=== PATIENT | female | born 1955 | race Caucasian/White ===

== ENCOUNTER 2016-04-05 14:37 | Emergency (ER) | payer MEDICARE ==
[~2016-04-05 14:37] MED LIST: ATIVAN1 MG PO; B COMPLEX1 TA3 PO; CITALOPRAM20 MG PO; CLONAZEPAM1 M1 PO; COGENTIN1 MG PO; COMPLETE VITAMI PO; CYMBALTA60 M1 PO; CYMBALTA60 MG PO; ENALAPRIL MALEAT5 MG PO; LEVOTHYROXINE0.05 MG PO; LISINOPRIL10 MG PO; MEDROL DOSEPAK4 MG PO; POTASSIUM GLUC595 MG PO; REMERON15 MG PO; SEROQUEL XR150 MG PO; TRILEPTAL300 MG PO; VASOTEC5 MG PO; VICODIN 5/500 505 MG PO; VICODIN ES 7501 TAB PO; VITAMIN D50000 I1 PO; XANAX0.5 MG PO
[2016-04-05] MEDS ORDERED: PROZAC40 M1 PO (14:54)
[2016-04-05] MEDS ORDERED: LIPITOR10 MG PO (14:55)
[2016-04-05 15:00] LABS: BASO # 0.1 10*3/uL (0.0-0.1); BASO % 0.4 % (0.0-1.0); EOS % 0.1 % (1.0-4.0); HEMOGLOBIN 15.5 g/dl (12.0-16.0); IG # 0.1 10*3/uL (0.0-0.1); LYMPH # 2.3 10*3/uL (1.3-4.4); LYMPH % 19.8 % (27.0-41.0); MEAN CELL VOLUME 94.4 fl (81.0-99.0); MEAN CORPUSCULAR HGB 29.9 pg (27.0-31.0); MEAN CORPUSCULAR HGB CONC 31.6 g/dl (33.0-37.0); MEAN PLATELET VOLUME 10.1 fl (9.6-12.3); MONO # 0.4 10*3/uL (0.1-1.0); MONO % 3.4 % (3.0-9.0); NEUT # 8.8 10*3/uL (2.3-7.9); NEUT % 75.9 % (47.0-73.0); PLATELET COUNT AUTOMATED 328 10*3/uL (130-400); RED BLOOD COUNT 5.19 10*6/uL (4.10-5.10); RED CELL DISTRI WIDTH 13.7 % (0-14.5); WHITE BLOOD COUNT 11.6 10*3/uL (4.8-10.8)
[2016-04-05 15:11] LABS: PROTHROMBIN TIME 10.7 SECONDS (9.0-12.4)
[2016-04-05 15:17] LABS: ALKALINE PHOSPHATASE 111 U/L (45-117); BILIRUBIN, TOTAL 0.5 mg/dl (0.2-1.0); BUN 15 mg/dl (7-24); CARBON DIOXIDE 23 mmol/L (21-32); CHLORIDE 104 mmol/L (98-107); EST GLOM FILT AFRICAN AMERICAN 57 ml/min; GLUCOSE 178 mg/dL (65-99); MAGNESIUM 1.8 mg/dL (1.5-2.1); POTASSIUM 4.4 mmol/L (3.5-5.1); SGOT/AST 77 IU/L (3-35); SGPT/ALT 92 U/L (12-78); SODIUM 140 mmol/L (136-145); TOTAL PROTEIN 8.6 gm/dL (6.4-8.2)
[2016-04-05 15:18] LABS: TROPONIN I < 0.015 ng/ml (<0.5)
[2016-04-05 15:24] LABS: BILIRUBIN NEGATIVE (NEGATIVE); BLOOD 1+ (NEGATIVE); CLARITY CLOUDY (CLEAR); COLOR YELLOW (YELLOW); GLUCOSE NEGATIVE (NEGATIVE); KETONE NEGATIVE (NEGATIVE); LEUKO ESTERASE NEGATIVE (NEGATIVE); NITRITE NEGATIVE (NEGATIVE); PH 7.5 (5.0-9.0); PROTEIN TRACE (NEGATIVE); UROBILINOGEN 0.2 E.U./dl (0.2-1.0)
[2016-04-05 15:45] LABS: URINE REFLEX COMMENT YES (NO)
[2016-04-05 16:57] LABS: LA>2 REFLEX 2 HR DRAW NOW
== END 2016-04-05 17:07 | disposition short-term general hospital (02) ==
LOC: ED 14:37
PROVIDERS: Student in an Organized Health Care Education/Training Program
DX: I63.9 Cerebral infarction, unspecified (principal); F41.9 Anxiety disorder, unspecified; F17.200 Nicotine dependence, unspecified, uncomplicated; Z79.899 Other long term (current) drug therapy

== ENCOUNTER 2016-12-10 14:59 | Inpatient (IN) | payer OTHER ==
[~2016-12-10] VITALS: Ht 152.4 cm; Wt 73.1 kg
--- NOTE | ~2016-12-10 | WRIGHTHP ---
[place], [place] PATIENT HISTORY AND PHYSICAL EXAM NAME: BEENA RATLIFF UNIT #: [id number] ROOM: 317 DOCTOR: POLLY RYAN MD BIRTHDATE: [birth year] DOS: 12/11/2016 CHIEF COMPLAINT: "Morning." HISTORY OF PRESENT ILLNESS: This is a 61-year-old white female who is a resident of [facility], presenting now with increased agitation and altered mental status. The patient has a history of the CVA with resultant aphasia and apparently has become increasingly more agitated and physically and verbally combative at the home. Attempts to redirect her, have met with her becoming more physically combative and resistive to care. Because she represented such a harm to self and others, it was felt that inpatient stabilization was warranted. PAST MEDICAL HISTORY: Remarkable for expressive aphasia, CVA. PAST MEDICAL HISTORY: The patient does not drink alcohol and she is a nonsmoker. The chart reveals a possible past history of bipolar disorder. MENTAL STATUS: The patient is at least oriented to self. It is unclear about place or time. She does say yes, no. Much of her other responses are nonsensical because of the aphasia. There was no agitation or aggression noted this morning and she was relatively pleasant with us. DIAGNOSIS: Brief psychotic disorder, rule out bipolar disorder. PLAN: I will go ahead and start her on Depakote 250 mg 3 times a day, maintain her Cymbalta 60 mg at bedtime, engage her in individual and el milieu activities with the ultimate plan to return to the least restrictive environment when psychiatrically stable. POLLY RYAN MD CM:HISPHYS:PATIENT HISTORY AND PHYSICAL EXAMINATION [phone] POLLY RYAN MD 12/11/16 1015 interface
--- NOTE | ~2016-12-10 | PR ---
[place], [place] PROGRESS NOTE NAME: [facility]EE[facility] RATLIFF [id number] UNIT #: [id number] ROOM: 317 DOCTOR: Alexa SEAY,MERARI BIRTHDATE: [birth year] DOS: 12/13/2016 SUBJECTIVE: The patient seen and spoke with the staff. Per staff, the patient is doing well. Med compliant. No behavioral problems or issues. Slept well last night. The patient was in the day area. She had the fascia, not able to talk, but looks bright and when I asked that how she is doing she nodded her head, seems like ____ that she is doing well. She denied any side effect from the medication. MENTAL STATUS EXAMINATION: The patient was pleasant, cooperative, seems not in acute distress. Denied any auditory or visual hallucination, not able to do full mental status examination because of her aphasia. ASSESSMENT: Bipolar disorder, mixed type. PLANS: 1. Continue current medication and care. 2. Continue redirection. Encourage activity and el milieu. MERARI SEAY MD CM:CINDY [phone] Alexa SEAY 12/13/165 interface
--- NOTE | ~2016-12-10 | DS ---
[place], [place] DISCHARGE SUMMARY NAME: BEENA RATLIFF UNIT #: [id number] ROOM: 316 DOCTOR: POLLY RYAN MD BIRTHDATE: [birth year] DOS: 12/17/2016 CHIEF COMPLAINT: "Morning." HISTORY OF PRESENT ILLNESS: This is a 61-year-old white female who is a resident of [facility], presenting now with increased agitation and altered mental status. The patient has a history of a CVA with resultant aphasia. She has become increasingly more agitated and physically and verbally combative at the home. Attempts to redirect her have met with her becoming increasingly more agitated. She represents a significant harm to self and others and it was felt that inpatient stabilization at this point was warranted. PAST MEDICAL HISTORY: Remarkable for the expressive aphasia and CVA. SUMMARY OF HOSPITAL COURSE: The patient was admitted to the hospital where she was maintained on her Cymbalta 60 mg at bedtime, Depakote 250 mg 3 times daily was added as a mood stabilizer to decrease her agitation and her mood lability. Additionally, she was started on Vraylar 1.5 mg at bedtime, also to act as a mood stabilizer and decrease her agitation and Exelon patch 4.6 mg a day was added to help her maintain or improve ADLs, behavior and cognition as well as hoping to improve communication skills. Ultimately, the Vraylar was increased from 1.5 to 3 mg at bedtime and the Exelon was increased from 4.6 to 9.5 mg daily. With these medication changes, the patient dramatically improved, mood did stabilize and affect improved. She voiced positive plans for the future. She still did exhibit some frustration with her communication issues, but this seemed to be much less intense than previously. She tolerated the medication regimen well, noting no side effects from the medicines themselves. She improved sufficiently to return to [place]. MENTAL STATUS AT DISCHARGE: The patient is alert and oriented with some time gaps. Mood does seem to be trending strongly toward improvement. Affect appropriate. There is no dakota or hypomania. There are no overt auditory or visual hallucinations. No delusions, no paranoia. Short term memory has gaps, otherwise she is intact. FINAL DIAGNOSIS: Major depression, recurrent with psychotic features. PLAN: The patient will return to [place] where she will have followup by the psychiatrist of her choice. ADDENDUM CHIEF COMPLAINT: The patient nodded yes and no. SUMMARY OF VISIT: The patient was interviewed in her room. She was able to nod yes or no to questions and did nod that she did not want to go to breakfast that she did not want to leave here and that she likes it here. The patient has been very compliant and pleasant here and has not been exhibiting the behaviors that were so prominent that led to her admission. She has tolerated the medication regimen well. The only reason she did not return to the long-term care facility [place], [place] DISCHARGE SUMMARY NAME: BEENA RATLIFF UNIT #: [id number] ROOM: 316 DOCTOR: POLLY RYAN MD BIRTHDATE: [birth year] yesterday was that the paperwork that was required, did not come until very, very late in the evening and it did not seem to be in her best interest to transport her back to the correction at such a late evening time. MENTAL STATUS AT DISCHARGE: She is alert and oriented to self at least place, possibly time. Mood does seem to be euthymic. Affect appropriate. There is no dakota or hypomania. There are no overt auditory or visual hallucinations, delusions or paranoia. For the most part, she does seem to be fairly euthymic. DISCHARGE DIAGNOSES AND PLAN: As per the 12/17/2016 dictation. POLLY RYAN MD CM:ISIDRO [id number] POLLY RYAN MD 12/19/16 0645 interface
--- NOTE | ~2016-12-10 | PR ---
[place], [place] PROGRESS NOTE NAME: BEENA RATLIFF UNIT #: [id number] ROOM: 317 DOCTOR: POLLY RYAN MD BIRTHDATE: [birth year] DOS: 12/12/2016 CHIEF COMPLAINT: The patient smiled and nodded. SUMMARY OF THE VISIT: The patient was interviewed in her room. She was resting in bed. The interview was difficult because of her aphasia. She was able to communicate more readily if yes and no type questions were asked of her and she was able to smile and nod yes or no. She did report that she did not sleep well and denies pain. Nurses report that she seems to isolate herself and gets easily frustrated and agitated. She does exhibit extreme mood lability from time to time. MENTAL STATUS: It is limited due to her inability to totally communicate. She did seem pleasant with me, however, and exhibited no agitation directed towards me. I was not fully able to ascertain her memory function. PLAN: I will go ahead and increase her Vraylar from 1.5 to 3 mg at nighttime, trying to decrease some of her mood lability and agitation. I will add Exelon patch 4.6 mg daily to augment the Namenda that she was already on to see if this helps improve communication skills. We will engage in individual and el milieu activity with the ultimate plan to return back to her long-term care facility when stable. POLLY RYAN MD CM:PNTRANS [id number] POLLY RYAN MD 12/13/16 0021 interface
--- NOTE | ~2016-12-10 | PR ---
[place], [place] PROGRESS NOTE NAME: BEENA RATLIFF UNIT #: [id number] ROOM: 317 DOCTOR: POLLY RYAN MD BIRTHDATE: [birth year] DOS: 12/15/2016 CHIEF COMPLAINT: "____." SUMMARY OF THE VISIT: The patient was interviewed as she was getting out of bed. She engaged in very superficial conversation, which is typical for her because of her dysphagia. She easily gets frustrated with her inability to communicate; however, she redirected and smiled as I supported her. MENTAL STATUS: She is alert and oriented with time gaps. Mood does seem to be trending towards euthymia and affect is more appropriate. There is no symptom suggestive of hypomania or dakota. Likewise, there are no overt auditory or visual hallucinations. No delusions, no paranoia are present. Short-term memory has gaps. PLAN: I will go ahead and increase her Exelon patch from 4.6 mg daily to 9.5 mg daily in an effort to improve and maintain ADLs, behavior and cognition. We will engage in individual and el milieu activity with the plan to return to the least restrictive environment when psychiatrically stable. POLLY RYAN MD CM:PNTRANS [id number] POLLY RYAN MD 12/16/16 0211 interface
--- NOTE | ~2016-12-10 | PR ---
[place], [place] PROGRESS NOTE [id number] UN[facility] #: [id number] ROOM: 317 DOCTOR: Alexa SEAY,MERARI BIRTHDATE: [birth year] DOS: 12/14/2016 PSYCHIATRIC PROGRESS NOTE SUBJECTIVE: The patient seen and spoke with the staff. Per staff, the patient is doing well, taking her medications, slept well last night. No behavioral problems or issues. The patient was in the day area. She said that she is doing good, did not express any problems or other concerns. Reports good sleep and appetite. Denied being depressed, sad, hopeless or helpless. When I asked her if she feels the medication is helping her or not, she nodded her head. She was trying to talk, but because of her aphasia, she was not able to communicate properly. MENTAL STATUS EXAMINATION: The patient was pleasant and cooperative. She was alert. She was aware where she is, which can be identified by her comfortability with the surroundings. She was able to remember me. She was not in any acute distress. She looks comfortable. Not able to do the full mental status examination because of her aphasia. ASSESSMENT: Bipolar type 1, mixed type. PLAN: 1. Continue current medication and care. 2. Continue redirection. 3. Vides milieu. 4. Final medication management and discharge plan by the regular team. MERARI SEAY MD CM:CINDY [id number] Alexa SEAY 12/14/16 1553 interface
[~2016-12-10 14:59] MED LIST changes: +LIPITOR10 MG PO; +PROZAC40 M1 PO
[2016-12-10] MEDS ORDERED: ASPIRIN CHEWABL81 MG PO (15:05)
[2016-12-10] MEDS ORDERED: COGENTIN0.5 MG PO (15:06)
[2016-12-10] MEDS ORDERED: URECHOLINE10 MG PO (15:08)
[2016-12-10] MEDS ORDERED: PLAVIX75 M1 PO (15:08)
[2016-12-10] MEDS ORDERED: BENADRYL ALLERG25 M5 PO (15:09)
[2016-12-10] MEDS ORDERED: NATURE'S BLEND F1 MG PO (15:10)
[2016-12-10] MEDS ORDERED: LANTUS SOL100 UNIT/1 SC (15:11)
[2016-12-10] MEDS ORDERED: SYNTHROID25 MCG PO (15:12)
[2016-12-10] MEDS ORDERED: CYMBALTA60 MG PO (15:13)
[2016-12-10] MEDS ORDERED: ATIVAN0.5 MG PO (15:15)
[2016-12-10] MEDS ORDERED: REMERON15 M2 PO (15:24)
[2016-12-10] MEDS ORDERED: NAMENDA-28 PO (15:25)
[2016-12-10] MEDS ORDERED: PROTONIX40 MG PO (15:25)
[2016-12-10] MEDS ORDERED: SEROQUEL25 MG PO (15:26)
[2016-12-10] MEDS ORDERED: Senokot-S 50 MG1 TAB PO (15:26)
[2016-12-10] MEDS ORDERED: FLOMAX0.4 MG PO (15:27)
[2016-12-10] MEDS ORDERED: VITAMIN B150 MG PO (15:28)
[2016-12-10] MEDS ORDERED: VITAMIN C500 M6 PO (15:29)
[2016-12-10] MEDS ORDERED: VITAMIN D22000 UNIT PO (15:30)
[2016-12-10] MEDS ORDERED: ACETAMINOPHEN325 M3 PO (15:33)
[2016-12-10] MEDS ORDERED: HALOPERIDOL5 MG/1 M1 IM ×2 (15:34→15:36)
[2016-12-10] MEDS ORDERED: ZOFRAN4 MG PO (15:37)
[2016-12-10] MEDS ORDERED: MIRALAX17 GM PO (15:38)
[2016-12-10] MEDS ORDERED: Nystatin Cream15 GM T (15:39)
--- NOTE | 2016-12-10 16:30 | NUR ---
PT ARRIVED ON THE UNIT AT 1630 VIA AMBULANCE AND SECURITY ESCORTING. PT ALERT TO PERSON ONLY.
--- NOTE | 2016-12-10 16:41 | NUR ---
NOTIFIED OF MEDICAL MANAGEMENT CONSULT NEEDED.
[2016-12-10 16:43] VITALS: BP 116/64
[2016-12-10 17:08] VITALS: BP 116/64
--- NOTE | 2016-12-10 17:18 | NUR ---
BEENA RATLIFF a 61 year old F [facility] BY [facility]A [facility]. Arrived on unit at 1630 . ALLERGIES: NKA . Vital signs are: 97.2-83-18 116/64. WE RECEIVED VERBAL CONSENT FROM THE POA FOR THE FOLLOWING FORMS stated understanding: Authorization For The Release of Medical Information, Clothing List, Consent to Voluntary Admission and Hospitalization, Consent and Release Forms/Receipt of Rights, Acknowledgement of Advance Directive Information, Behavioral Health Consent Form, and Informed Consent of Medications. Admitted under the services of Dr. CONNOR URBAN,[facility]. A search was conducted and hazardous articles were removed. Client was oriented to the unit. HELIO JIMÉNEZ
--- NOTE | 2016-12-10 18:24 | NUR ---
PT ALERT TO PERSON ONLY. PT SPEAKS USING YES OR NO PHRASES BUT HAS BEEN SHAKING HER HEAD IN THE OPPOSITE DIRECTION OF HER ANSWER. PT ANXIOUS AT TIMES, PT UNABLE TO EXPRESS WANTS OR NEEDS. NO RESPONSE TO INTERNAL STIMULI NOTED. PT DENIES ANY HOMICIDAL/SUICIDAL THOUGHTS. PT UP TO WHEELCHAIR, PT 2 ASSIST,D/T RIGHT SIDED WEAKNESS. PT CONTINENT OF BOWEL AND BLADDER, EPISODES OF INCONTINENCE NOTED, CARE PROVIDED NEEDED.
[2016-12-10 20:51] VITALS: BP 107/60
--- NOTE | 2016-12-11 04:35 | NUR ---
24 HR chart check completed.
[2016-12-11 07:49] LABS: BASO % 0.7 % (0.0-1.0); EOS # 0.2 10*3/uL (0.0-0.4); EOS % 4.4 % (1.0-4.0); HEMATOCRIT 38.6 % (37.0-47.0); HEMOGLOBIN 11.7 g/dl (12.0-16.0); LYMPH # 1.5 10*3/uL (1.3-4.4); LYMPH % 33.6 % (27.0-41.0); MEAN CELL VOLUME 85.6 fl (81.0-99.0); MEAN CORPUSCULAR HGB 25.9 pg (27.0-31.0); MEAN CORPUSCULAR HGB CONC 30.3 g/dl (33.0-37.0); MEAN PLATELET VOLUME 11.1 fl (9.6-12.3); MONO # 0.4 10*3/uL (0.1-1.0); MONO % 9.3 % (3.0-9.0); NEUT # 2.4 10*3/uL (2.3-7.9); NEUT % 51.8 % (47.0-73.0); PLATELET COUNT AUTOMATED 221 10*3/uL (130-400); RED BLOOD COUNT 4.51 10*6/uL (4.10-5.10); RED CELL DISTRI WIDTH 15.6 % (0-14.5); WHITE BLOOD COUNT 4.5 10*3/uL (4.8-10.8)
--- NOTE | 2016-12-11 07:57 | NUR ---
PT PLESANT AND COOPERATIVE, MED COMPLIANT. DIFFICULT TO ENGAGE DUE TO DYSPHAGIA FROM PREVIOUS RIGHT SIDED CVA, MED COMPLIANT WITH OUT DIFFICULTY. PT CONSUMED FINGER FOODS AND FLUIDS WELL. UNABLE TO ADMINISTER BOLUS OF GLUCERNA DUE TO INAVALIBILITY. SLEPT 8 HOURS WITH OUT DIFICULTY. CONTINUE POC
[2016-12-11 07:59] VITALS: BP 108/64
--- NOTE | 2016-12-11 08:13 | NUR ---
SPEECH PATHOLOGY Screening completed. Reports indicate that patient has a hx of CVA with receptive and expressive aphasia. Patient is experiencing no acute language difficulties and is tolerating diet with no dysphagia. Speech pathology services are not warranted at this time however this dept. will remain available should future needs arise. MAKI PINTO MSCCC-FOOD PRODUCTION SUPERVISOR
[2016-12-11 08:20] LABS: ALBUMIN 3.4 gm/dl (3.1-4.5); ALKALINE PHOSPHATASE 105 U/L (45-117); BUN 14 mg/dl (7-24); CHLORIDE 109 mmol/L (98-107); CHOLESTEROL 132 mg/dL (<200); CREATININE 0.78 mg/dL (0.55-1.02); HDL CHOLESTEROL 55 mg/dl (40-60); LDL CHOLESTEROL 53 mg/dL (9-159); POTASSIUM 3.9 mmol/L (3.5-5.1); SGOT/AST 25 IU/L (3-35); SGPT/ALT 23 U/L (12-78); SODIUM 144 mmol/L (136-145); TOTAL PROTEIN 7.3 gm/dL (6.4-8.2); TRIGLYCERIDES 120 mg/dl (<150); VLDL CHOLESTEROL 24 mg/dL (6-40)
[2016-12-11 09:24] LABS: VITAMIN D, 25-HYDROXY 22.1 ng/mL (30-100)
--- NOTE | 2016-12-11 10:43 | NUR ---
UNABLE TO ASSESS MENTAL STATUS D/T APHASIA. SMILING UPON INTERACTIONS WITH STAFF. REPEATS "YES, NO, YES, YES, NO" THIS AM WHEN ASKED ANY QUESTIONS. APPEARS TO UNDERSTAND SIMPLE COMMANDS FROM STAFF. DECLINED BREAKFAST THIS MORNING. MEDICATION COOMPLIANT WITHOUT DIFFICULTY. NO SELF HARM OR BEHAVIORS NOTED. NO AGITATION OR AGGRESSION. CALM AND COOPERATIVE WITH STAFF WITH HOC THIS MORNING. NO OVERT HALLUCINATIONS NOTED. RESPIRATIONS EASY AND EVEN. NO ACUTE DISTRESS NOTED.
--- NOTE | 2016-12-11 10:50 | NUR ---
ASKED ACTIVITY THERAPIST FOR COMMUNICATION BOAD, STATES SHE WILL LOOK FOR ONE.
--- NOTE | 2016-12-11 12:59 | NUR ---
Occupational Therapy screen this [facility]. Patient has right hemiplegia, expressive/receptive aphasia and dysphagia with g-tube for bolus feedings. Patient was LTC at a alf, Pankaj lift for xfers, dependent for self care and IN feeding after set up with left hand. At this time there is not a need for OT as patient continues to function as she did prior to admission. Recommend nursing use Pankaj lift for transfers for max safety and PROM RUE during am care. Thank you for this referral. Emily David OTR/l
--- NOTE | 2016-12-11 13:01 | NUR ---
PHYSICAL THERAPY Patient screened. parts counterman right hemiplegia. Hoyr lift at prior facility. No PT skills/needs. Pankaj bed to chair recommended to staff. Return to [facility] as prior. Thank you for this referral. Lexi Foster,PT
--- NOTE | 2016-12-11 13:35 | NUR ---
Exercise/Choices/Trivia This benefits the patient in her treatment goal of positivity, decrease agitation and anxiety Patient was not present during exercise portion of group,but came afterwards. Patient was quiet and withdrawn during group. patient also does not speak. Other patients did say hello to her. I discussed with patient what she liked to do and told her i would get her things
--- NOTE | 2016-12-11 16:49 | NUR ---
Sent upated information to the facility.
[2016-12-11 20:28] VITALS: BP 111/70
--- NOTE | 2016-12-12 04:29 | NUR ---
24 HR chart check completed.
--- NOTE | 2016-12-12 07:40 | NUR ---
PT HAS PERIODS OF AGITATION IN REGARDS TO FRUSTRATION WITH COMMUNICATION BARIERS AND DECREASED MOBILITY. MED COMPLAINT WITH OUT DIFFICULTY. SLEPT 8 HOURS WITH OUT INTURRUPTION COPPERATIVE OF CARE NO EMOTIONAL OUTBURSTS OR SELF HARM THIS SHIFT.
[2016-12-12 08:00] VITALS: BP 124/78
--- NOTE | 2016-12-12 08:11 | NUR ---
12/11/16 Afternoon [facility] Patient did not attend group. Patient was encouraged to join and i discussed with patient the benefits to attending group. But patient just refused and indicated she would like to lay down
--- NOTE | 2016-12-12 12:10 | NUR ---
Nutritional Support Services Note: Pt is eating well. Recommend diet continues as regular with finger foods. Boost Glucose Control via peg if meal consumption falls below 50% of foods offered. Will continue to follow as needed. oSnja Hernandez
--- NOTE | 2016-12-12 18:53 | NUR ---
NAPS INTERMITTENTLY T/O THE SHIFT. MEDICATION COMPLIANT WITHOUT DIFFICULTY. PLEASANT WITH STAFF. UNABLE COMMUNICATE D/T APHASIA. COMMUNICATION BOARD INEFFECTIVE AT THIS TIME.
[2016-12-12 20:05] VITALS: BP 100/65
--- NOTE | 2016-12-12 23:50 | NUR ---
PT IN DINING ROOM FEARFULL TO GO TO BED, TEARFULL AND PARINOID THAT SOMEONE IS GOING TO TRY AND KILL HER IN HER SLEEP. 1-1 PROVIDED, DEEP BREATHING EXERCISES, REASSURANCE OF SAFETY. PT REQUESTING "SOMETHING TO HELP CALM ME DOWN SO I CAN JUST SLEEP". MEDICATION OPTIONS DISCUSSED PT REQUESTING ATIVAN PO. ADMINISTERED PER ORDER.
--- NOTE | 2016-12-13 06:10 | NUR ---
PT PLESANT AND COOPERATIVE WITH ALL ASPECTS OF CARE, CONTINUES TO HAVE SOME FRUSTRATION WITH LANGUAGE BARRIER AND DECREASED MOBILITY. MED COMPLAINT WITH OUT COAXING. CONTINUE TO EXPLORE ALTERNATIVE MEANS OF COMMUNICATION WITH PT TO DECREASE FRUSTRATION . PT SLEPT 8 HOURS WITH OUT INTURRUPTION.
[2016-12-13 08:40] VITALS: BP 102/68
--- NOTE | 2016-12-13 16:02 | NUR ---
Tamiko is compliant with prescribed medications. Due to speaking difficulty unable to assess thought processes. She does answer questions asked by staff with one and two words and also motions when she needs something. No agitation has been noted. She has spent time up in the dining room for meals and does sit for periods of time with peers, watching TV and listening to music. Worried, tense expression noted @ intervals. Reassurance and support provided by staff. She has not exhibited any overt s/s of sensory disturbances. Energy level is low with napping. Appetite is good for meals. Refer to [facility] flowsheet for specific monitoring.
[2016-12-13 19:54] VITALS: BP 101/68
--- NOTE | 2016-12-13 23:42 | NUR ---
PATIENT MEDICATION COMPLAINT. ASSISTED TO BATHROOM AND BED WITH ASSIST X 2. PATIENT WITH SOME FRUSTRATION WITH LANGUAGE BARRIER BUT NURSING ABLE TO REDIRECT PATIENT. EXPRESSES NO PAIN OR DISCOMFORT AT THIS TIME
--- NOTE | 2016-12-14 02:30 | NUR ---
24 HR chart check completed.
--- NOTE | 2016-12-14 06:38 | NUR ---
Q 15 MINUTE SAFETY CHECKS MAINTAINED. SLEPT < 8 HRS THROUGHOUT SHIFT
[2016-12-14 08:25] VITALS: BP 110/68
--- NOTE | 2016-12-14 18:13 | NUR ---
Tamiko is compliant with medications. She continues to answer questions by staff with one word statements such as yes or no. Unable to determine thought process due to limited speaking ability. She is eating with a good appetite and has spent some time out in milieu with peers. She has exhibited some appropriate smiling. No overt s/s of sensory disturbances. Transports about in wheelchair. Energy level noted to be appropriate to condition. Dr. Bloom in to see her today. Refer to [facility] flowsheet for specific monitoring.
[2016-12-14 20:02] VITALS: BP 104/63
--- NOTE | 2016-12-15 02:58 | NUR ---
24 HR chart check completed.
--- NOTE | 2016-12-15 07:10 | NUR ---
Q 15 MINUTE SAFETY CHECKS MAINTAINED. SLEPT > 8 HOURS THROUGHOUT SHIFT
[2016-12-15 08:16] VITALS: BP 116/78
--- NOTE | 2016-12-15 11:02 | NUR ---
NOTIFIFED AT [phone] REGARDING PT NEEDING ALEKSANDRA AND BANDAID ORDERED FOR RIGHT HAND.
--- NOTE | 2016-12-15 11:47 | NUR ---
BEENA RATLIFF [id number] Please refer to the physician's history and physical for past medical history, comorbid conditions, and allergies. Diagnosis: BIPOLAR TYPE I MIXED Beau Score: 17,VERY HIGH RISK WOUND DESCRIPTIONS: Location of the wound: right hand Type of wound: skin tear Thickness: Partial Size: 0.5cm x 0.5cm x <0.1cm Tunneling: none Undermining: none Sinus Tract: none Presence of Exudate: Sanguineous Amount: Light Color: Red Odor: None Periwound Skin Appearance: Normal Wound edges: approximated Pain (associated with wound): none at time of assessment How does patient state this happened? pt unable to state how this happened Surface the patient is resting on: Proform SKIN PREVENTION RECOMMENDATION: 1. Pressure redistribution support surface as appropriate 2. Elevate heels 3. Remove boots/TEDS every shift and reapply 4. Head of bed 30 degrees as tolerated 5. Assess nutrition and hydration 6. Manage moisture 7. Avoid the use of containment devices while in bed 8. Use absorptive products on surfaces limit layers of linens on bed 9. Turn and reposition every 1-2 hours in bed and every 1 hour in chair as tolerated 10. Weight shifts every 15 minutes while up in chair 11. Offloading with pillows or device to keep heels elevated off bed 12. Monitor skin at least every shift 13. Inspect under medical devices twice a day WOUND TREATMENT RECOMMENDATIONS: Cleanse right hand with NSS and apply antibiotic ointment and cover with bandaid daily.
--- NOTE | 2016-12-15 13:20 | NUR ---
Exercise/Memory Ball This will help patient in her treatment goal of reduction of agresstion/agitation learn relaxing skills and coping skills Patient did attend group and participated as well as she could. Patient performed exercises and passing the ball from one another quite well. Patient did not become upset or aggitated when she was unable to do or express something she wanr=marcia to. She did express quiet frustration
--- NOTE | 2016-12-15 13:24 | NUR ---
DUNCAN received call from [facility] informing that [facility] was not back yet. DUNCAN informed that Dr. Sanders is looking for discharge on Thursday. DUNCAN educated that as long as Kanchan Cruz update was sent to [facility] within 48 hours facility can take Pt back by results are received.
--- NOTE | 2016-12-15 17:06 | NUR ---
AT 1630, STAFF ALERTED THIS NURSE THAT PT WAS LAYING ON THE FLOOR IN THE DINING AREA. THIS NURSE AND JAMAICA APPROACHED PT WAS LAYING ON THE FLOOR ON HER RIGHT SIDE WITH HER HEAD UP OFF THE GROUND. PT ASSISTED UP TO WHEELCHAIR VIA 3 ASSIST, ROM WNL, NO S/S OF PAIN NOTED OR RED AREAS NOTED. [facility] DIRECTOR, NATE NOTIFIFED AT 1636, NOTIFIED AT 1638, NURSING SERVICE STATION OPERATOR NOTIFIED AT 1640, PT GERALD HINOJOSA NOTIFIFED AT 1641.
--- NOTE | 2016-12-15 17:47 | NUR ---
NOTIFIFED OF HEAD CT RESULTS RECEIVED. PER HE WILL TAKE A LOOK AT IT. NO FURTHER ORDERS AT THIS TIME.
[2016-12-15 20:10] VITALS: BP 112/79
--- NOTE | 2016-12-15 21:38 | NUR ---
DIFFICULT TO AROUSE FOR PM MEDICATION. ONE AWAKE CLIENT MEDICATION COMPLIANT AND DRANK 140ML OF WATER. PEG TUBE PATENT AND INTACT. REPOSITIONED FOR COMFORT
--- NOTE | 2016-12-16 03:43 | NUR ---
24 HR chart check completed.
--- NOTE | 2016-12-16 07:06 | NUR ---
Q 15 MINUTE SAFETY CHECKS MAINTAINED. SLEPT >8 HOURS THROUGHOUT SHIFT
[2016-12-16 08:05] VITALS: BP 111/76
--- NOTE | 2016-12-16 08:51 | NUR ---
12/15/16 Afternoon BIN This will help with patients treatment with socialization,relaxation and reduction in stress Patient did attend group and did begin to participate but soon appeared to become frustrated and quit playing. Patient was offered 1:1 multiple times by myself and Bebe Johnson, but refused every time. Patient stayed in room,until group was over,watching the game
--- NOTE | 2016-12-16 12:58 | NUR ---
Exercise/Games Patient was in bed when i asked her to come to group. Patient does not speak but i understood her motioning with her hands to mean she would when she got dressed. Patient did not come up to lounge until we were putting away the game to watch a movie
--- NOTE | 2016-12-16 15:54 | NUR ---
Halloween Color and Talk This group will help patient to reduce stress Patient stated she wanted to join goup but then "needed" to leave the room for the bathroom. When patient returned pstient refused to participate. Patient was encouraged to join in and given coloring page and crayons but stl refused
[2016-12-16 19:50] VITALS: BP 110/56
--- NOTE | 2016-12-16 21:22 | NUR ---
24 HR chart check completed.
--- NOTE | 2016-12-17 06:10 | NUR ---
PT HAS SLEPT QUIETLY THROUGHOUT THE SHIFT PAST 2200.
[2016-12-17 07:42] VITALS: BP 109/58
[2016-12-17 07:54] LABS: BASO % 0.4 % (0.0-1.0); EOS # 0.2 10*3/uL (0.0-0.4); EOS % 3.2 % (1.0-4.0); HEMATOCRIT 40.5 % (37.0-47.0); HEMOGLOBIN 12.5 g/dl (12.0-16.0); LYMPH # 1.6 10*3/uL (1.3-4.4); LYMPH % 33.7 % (27.0-41.0); MEAN CELL VOLUME 85.3 fl (81.0-99.0); MEAN CORPUSCULAR HGB 26.3 pg (27.0-31.0); MEAN CORPUSCULAR HGB CONC 30.9 g/dl (33.0-37.0); MEAN PLATELET VOLUME 10.9 fl (9.6-12.3); MONO # 0.4 10*3/uL (0.1-1.0); MONO % 9.2 % (3.0-9.0); NEUT # 2.5 10*3/uL (2.3-7.9); NEUT % 52.6 % (47.0-73.0); PLATELET COUNT AUTOMATED 241 10*3/uL (130-400); RED BLOOD COUNT 4.75 10*6/uL (4.10-5.10); RED CELL DISTRI WIDTH 15.8 % (0-14.5); WHITE BLOOD COUNT 4.7 10*3/uL (4.8-10.8)
[2016-12-17 07:56] LABS: ALBUMIN 3.4 gm/dl (3.1-4.5); ALKALINE PHOSPHATASE 96 U/L (45-117); BUN 23 mg/dl (7-24); CHLORIDE 107 mmol/L (98-107); CREATININE 0.85 mg/dL (0.55-1.02); POTASSIUM 3.8 mmol/L (3.5-5.1); SGOT/AST 23 IU/L (3-35); SGPT/ALT 20 U/L (12-78); SODIUM 143 mmol/L (136-145); TOTAL PROTEIN 7.5 gm/dL (6.4-8.2)
[2016-12-17] MEDS ORDERED: MEMANTINE HCL10 MG PO (09:04)
[2016-12-17] MEDS ORDERED: VRAYLAR3 MG PO (09:04)
[2016-12-17] MEDS ORDERED: DIVALPROEX SOD125 M1 PO (09:04)
[2016-12-17] MEDS ORDERED: RIVASTIGMINE1 EAC1 T (09:04)
[2016-12-17] MEDS ORDERED: LORAZEPAM0.5 MG PO (09:04)
[2016-12-17] MEDS ORDERED: DULOXETINE HCL60 MG PO (09:04)
--- NOTE | 2016-12-17 09:17 | NUR ---
Treatment Team was held with the follow present: Dr. Sanders, JAMA, MEdical Student, RN, AT, and SW. Pt to be discharged to [facility] today.
--- NOTE | 2016-12-17 09:23 | NUR ---
SW set up transportation with [facility] for pickup at 12:30pm.
--- NOTE | 2016-12-17 09:25 | NUR ---
SW left VM for Son Shane [facility]
--- NOTE | 2016-12-17 09:25 | NUR ---
JARON notified [facility] that Pt was discharged and would picked up around 12:30pm. Sheldon stated that jaron said pt could not return due to singinficant change [facility] not back. JARON educated that if Update was submitted Pt can return to facility. [facility] faxed updated information to [facility].
--- NOTE | 2016-12-17 09:28 | NUR ---
SOn Shane returned call and SW informed him that Pt was being discharged back to [facility] today. Son said ok.
--- NOTE | 2016-12-17 11:04 | NUR ---
DUNCAN OLIVARES. UPDATE IS WITH TUBE REPAIRER NICK AND F-T-F WAS REQUESTED. VELIA WILL HAVE NICK CALL DUNCAN.
--- NOTE | 2016-12-17 11:10 | NUR ---
AWA FROM [facility] STATING THAT THEY CAN NOT ACCEPT PT BACK UNTIL RESULTS FROM PASRR LEVEL ARE BACK FROM [facility].
--- NOTE | 2016-12-17 11:20 | NUR ---
Trivia/ Goal setting Group Patient attended and displayed good participation once arriving in group. Nursing brought patient into group after group was started and stated patient was agitated. Patient however able to agree to goal of "being happier" by nodding head and verbalizing "yes." Patient appropriatly participated in triva questions with peers evident by laughing and smiling throughout group. Patient progressing towards short term goals.
--- NOTE | 2016-12-17 11:44 | NUR ---
SW CALLED [facility] AND PUT TRANSPORATION ON HOLD UNTIL LEVEL II PASRR IS BACK.
--- NOTE | 2016-12-17 11:49 | NUR ---
spoke with Federico, Administartor from [facility], she states that [facility] and [facility] both state that pt. cannot return until the LOC2 is back. Ivana said they have been waiting since last for approval.
--- NOTE | 2016-12-17 11:57 | NUR ---
DUNCAN RECIEVED RETURN CALL FROM [facility] HYDRAULIC STRAINER OPERATOR EMANI. LEVEL II PASRR WILL BE COMPLETED TODAY. PT IS APPROVED TO RETURN TO [facility]. PAPERWORK WILL BE COMPLETED BY 6PM. EMANI IS AT HER COUNTER INTELLIGENCE TECHNICIAN JOB AND WILL WORK ON IT AT 4:30PM.
--- NOTE | 2016-12-17 11:59 | NUR ---
Mood is depressed with some episodes of tearfulness noted @ intervals throughout the day. 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 Answers questions asked with yes or no. Denies any discomfort when questioned. No overt s/s of hallucinatory activity. Requires maximal assistance with ADL's and simple tasks. She is, however, ab;e to feed herself @ meal time. Dr. Sanders in to see her today and orders were received to discharge today and to return to [facility]. Refer to [facility] flowsheet for more specific monitoring throughout this day. Skin tear to right hand healing without s/s of infection. Wound picture taken of area and Nyasia Villa RN came to unit to roller picker camera. family caseworker reports a delay in discharge to facility as they are awaiting reply from [facility].
--- NOTE | 2016-12-17 14:40 | NUR ---
BEENA WAS NOTED TO EXHIBIT SOME RESTLESSNESS AND AN INCREASE IN ANXIETY WHEN ATTEMPTING TO SPEAK WITH STAFF. 1:1 INTERACTION INEFFECTIVE IN CALMING HER. MEDICATED WITH ATIVAN 1 MG PO @ 1353 FOR INCREASED ANXIOUSNESS. ATIVAN IS NOTED TO BE EFFECTIVE IN CALMING HER @ THIS TIME.
--- NOTE | 2016-12-17 15:58 | NUR ---
DUNCAN MARVINKRJavier WITH [facility] SKILLED . NICK BILLING COLLECTIONS SPECIALIST FROM [facility] TO DO ASSSESSMENT. DUNCAN INFORMED [facility] THAT NICK WAS AT UNIT LAST NIGHT AND WILL COMPLETE PAPERWORK BETWEEN 4:30PM - 6PM [facility]. DUNCAN WILL SET UP TRANSPORTATION FOR THURSDAY AT 10AM. [facility] AGREED TO DISCHARGE TIME.
--- NOTE | 2016-12-17 16:06 | NUR ---
DUNCAN NOTIFIED SON/DPOAHC GERALD THAT [facility] REFUSING TA TAKE BACK UNTIL LEVELII PASRR RESULTS ARE BACK. RESULTS WILL BE BACK BY 6PM. DUNCAN WILL SET UP TRANSPORTATION AT 10AM ON Thursday12-18-16.
--- NOTE | 2016-12-17 16:08 | NUR ---
DUNCAN NOTIFIED DR. RYAN THAT LEVEL II RESULTS FOR PASRR WILL NOT BE BACK UNTIL CLOSE OR AFTER 6PM. DUNCAN WILL SET UP TRANSPORTATION FOR 10AM Thursday. DR. RYAN THIS WAS OK.
--- NOTE | 2016-12-17 16:12 | NUR ---
DUNCAN SPOKE WITH JEANETTE ABARCA TO ARRANGED TRANSPORTATION FOR DECEMBER 18, 2016 AT 10AM FOR DISCHARGE BACK TO [facility].
--- NOTE | 2016-12-17 17:06 | NUR ---
DUNCAN RECEIVED MESSAGE THAT NICK BENITO NEEDED PT'S HX AND PHYSICAL. DUNCAN FAXED HX AND PHYSICAL TO NICK.
[2016-12-17 20:00] VITALS: BP 113/60
--- NOTE | 2016-12-18 01:29 | NUR ---
24 HR chart check completed.
--- NOTE | 2016-12-18 06:15 | NUR ---
PT HAS BEEN OBSERVED ON Q 15 MIN CHECKS & HAS SLEPT QUIETLY THROUGHOUT THE SHIFT PAST 2200.
--- NOTE | 2016-12-18 08:02 | NUR ---
12/17/16 Afternoon Positive Traits Patient was in attendence of group but limited participation due to recieving anxiety medication. Patient showed decrease of anxiety after recieving medication
[2016-12-18 08:20] VITALS: BP 109/52
--- NOTE | 2016-12-18 08:50 | NUR ---
Treatment Team was held withthe following present: Dr. Sanders, Medical Student, Resident, CHRONIC CARE NURSE, RNs, ATs, SW. Pt pending discharge today of LEVEL II PASRR is received back.
--- NOTE | 2016-12-18 10:27 | NUR ---
PASRR NOT RECEIVED FOR PASRR. DUNCAN CALLED [facility] AND JOSE STATED THAT THE STATE HAS NOT COMPLETED IT YET. IT SHOULD BE BACK LATER TODAY. JOSE DOES NOT KNOW WHY CROWN IRONER SAID THAT IT WOULD BE BACK LAST NIGHT.
--- NOTE | 2016-12-18 10:28 | NUR ---
DUNCAN CALLED [facility] TO PUT AMBULANCE ON HOLD. CREW IS IN ELEVATOR. SW NOTIFIED CREW THAT DISCHARGE ON HOLD DUE TO PAPERWORK NOT RECEIVED YET.
--- NOTE | 2016-12-18 10:29 | NUR ---
DUNCAN NOTIFIED MARCIA THAT PASRR LEVEL II NOT BACK YET. TRANSPORTATION ON HOLD. JIGNA SAID THAT IT SHOULD BE BACK LATER TODAY. DUNCAN SPOKE WITH LG DUE TO [facility] NOT AVILABLE.
--- NOTE | 2016-12-18 11:35 | NUR ---
SW received call from [facility] that PASRR Level ii was received back. Pt ok to come. SW will scheduled transportation and call back with time.
--- NOTE | 2016-12-18 11:36 | NUR ---
DUNCAN spoke with RIMA Pollock to schedule transportation for discharge. fruit or nut picker around 2pm due to crew taking an ER to [facility].
--- NOTE | 2016-12-18 11:37 | NUR ---
DUNCAN left messsage with Ivana Reynoso that transportation was arranged for berry picker 2pm.
--- NOTE | 2016-12-18 11:38 | NUR ---
SW notified staff that pear picker was 2pm for Pt.
--- NOTE | 2016-12-18 13:26 | NUR ---
Morning exercises, "strawberry" cornhole and remenissing group Patient attended group with peers however displays limited participation. Patient attempted to eat/chew strawberry shaped nieves bags along with plain square cornhole bags. Patient did not follow visual cues for exercises however was appropriate throughtout group with no signs of agitation.
--- NOTE | 2016-12-18 15:18 | NUR ---
Inspirational craft group Patient present in room when group was in session however patient was sleeping and difficult to arouse.
--- NOTE | 2016-12-18 15:30 | NUR ---
Tamiko has required some encouragement to comply with prescribed medications. Irritable in batch unloader and napped approximately one hour. @ one point she became frustrated due to limited verbalization and became agitated with staff. Verbal intervention ineffective. Medicated with ativan 1 mg po @1024. Ativan effective in calming Tamiko. Fall precautions have been maintained. Requires 2 assist for hygiene measures and two assist to transfer. She is able to feed herself independently, however. Dr. Sanders in to see her today. Tamiko will be discharged today and will be returning to [facility]. Verbal report provided to receiving RN @ [facility] in preparation for discharge. Refer to [facility] flowsheet for specific monitoring throughout this day. [facility] flowsheet
--- NOTE | 2016-12-18 18:11 | NUR ---
Tamiko did leave this unit discharged on this date @ approximately 1740. She is being transported via ambulance to [facility] accompanied by ambulance personnel. She is alert @ time of discharge. All discharge forms were sent with ambulance staff as needed. All discharge information that require needed signatures by POAlda will be sent per case management social worker to [facility]. Prior to her departure all personal items were returned to her.
== END 2016-12-18 17:40 | disposition home or self-care (01) | DRG 885 ==
LOC: 3N 14:59
PROVIDERS: Registered Nurse; ADMIT Psychiatry & Neurology Psychiatry
DX: F33.3 Major depressive disorder, recurrent, severe with psychotic symptoms (principal); E44.0 Moderate protein-calorie malnutrition; F23 Brief psychotic disorder; I69.320 Aphasia following cerebral infarction; N39.0 Urinary tract infection, site not specified; I10 Essential (primary) hypertension; R31.9 Hematuria, unspecified; F41.9 Anxiety disorder, unspecified; E55.9 Vitamin D deficiency, unspecified; E66.09 Other obesity due to excess calories; Z80.9 Family history of malignant neoplasm, unspecified; Z79.82 Long term (current) use of aspirin; Z79.899 Other long term (current) drug therapy; Z68.31 Body mass index [BMI] 31.0-31.9, adult